=== PATIENT | male | born 2000 | race Caucasian/White ===

== ENCOUNTER 2022-03-08 10:19 | Inpatient (IN) ==
[2022-03-08] MEDS ORDERED: dilTIAZem HCl 5 MG/ML 5 ML VIAL IV ONE (10:36)
[2022-03-08] MEDS ORDERED: dilTIAZem HCl 5 MG/ML 5 ML VIAL IV STA (10:36)
[2022-03-08] MEDS ORDERED: STAT IV Infusion **Titration per Protocol STA (10:42)
[2022-03-08] MEDS ORDERED: SODIUM CHLORIDE 0.9% 1000ML 2,000 ML IV ONE (10:43)
[2022-03-08] MEDS ORDERED: ASPIRIN CHEW 324 MG PO STA (10:45)
[2022-03-08] MEDS ORDERED: dilTIAZem HCL 125 MG in DEXTROSE 5% 100 ML IV SCH (10:45)
[2022-03-08] MEDS ORDERED: ASPIRIN CHEW 324 MG ONE (10:46)
[2022-03-08 10:47] LABS: Basophils # (auto) 0.06 K/uL (0-0.2); Basophils % (auto) 0.7 %; Eosinophils # (auto) 0.59 K/uL (0-0.50); Eosinophils % (auto) 6.8 %; Hematocrit (blood only) 51.7 % (40.1-51.0); Hemoglobin 18.2 g/dl (14.0-18.0); Immature Granulocytes # (auto) 0.02 K/uL (0.00-0.02); Immature Granulocytes % (auto) 0.2 %; Lymphocytes # (auto) 2.64 K/uL (1.2-3.4); Lymphocytes % (auto) 30.2 %; Mean Corpuscular Hgb Conc 35.2 g/dL (32.0-36.0); Mean Corpuscular Volume 87.9 fL (80.0-100.0); Mean Platelet Volume 9.5 fL (9.4-12.4); Monocytes # (auto) 0.75 K/uL (0.24-0.82); Monocytes % (auto) 8.6 %; Neutrophils # (auto) 4.68 K/uL (1.4-6.5); Neutrophils % (auto) 53.5 %; Platelet Count 272 K/uL (130-400); RDW Coefficient of Variation 11.9 % (11.5-14.5); RDW Standard Deviation 38.5 fL (36.4-46.3); Red Blood Count 5.88 M/uL (4.63-6.08); White Blood Count 8.74 K/ul (4.8-10.8)
--- NOTE | 2022-03-08 10:53 | Emergency Department Note ---
History of Present Illness General Chief Complaint: Arrhythmia/Palpitations Stated Complaint: IRREGULAR HEARTBEAT Time Seen by Provider: 03/08/22 10:32 History of Present Illness Provider Complaint: + rapid heart beat and + palpitations Onset (ago): 2 day(s) Duration: + Intermittent Severity: similar to previous episodes Arrhythmia history: + atrial fibrillation and + history of electrical cardioversion Associated symptoms: no chest pain, no shortness of breath, no syncope, no near- syncope, no nausea, no vomiting, no anxiety, no diaphoresis, no cough or no paresthesias HPI narrative: No recent travel, no shortness of breath, no hemoptysis, no exogenous hormone usage, no steroid usage, no illicit drugs. Allergies Allergy/AdvReac Type Severity Reaction Status Date / Time No Known Allergies Allergy Unverified 03/08/22 10:27 Past Med/Surg History Medical History (Updated 03/08/22 @ 12:36 by Tu Perez) Atrial fibrillation No pertinent family history Surgical History (Updated 03/08/22 @ 10:51 by Tu Perez) No pertinent past surgical history Family History (Updated 03/08/22 @ 10:51 by Tu Perez) Other Heart disease Social History Smoking Status: Never smoker Preferred Language: Kuwaiti Feels Safe at Home: Yes Review of Systems A total of 10 systems reviewed and were otherwise negative Physical Exam Vital Signs: Vital Signs - 24 hr 03/08/22 10:28 03/08/22 10:40 03/08/22 10:50 Temperature 37.2 C Temperature Source Temporal Artery Sc an Pulse Rate 96 H 169 H Pulse Rate [Apical ] Pulse Rhythm Regular Pulse Rhythm [Apic al] Pulse Strength Normal Respiratory Rate 16 20 Respiratory Effort / Characteristics Non-Labored Sponta neous Respiratory Depth Normal Respiratory Patter n Regular Blood Pressure 129/80 Blood Pressure [Ri ght Arm] Blood Pressure Ruth n 96 Blood Pressure Ruth n [Right Arm] Blood Pressure Pos ition Sitting Pulse Oximetry 98 99 Oxygen Delivery Me thod Room Air Room Air Room Air Sepsis Recent Feve r Within 48 Hours No Sepsis New/Unexpla ined Change in Men ranjith Status No Sepsis Action Take n by Nursing No Action Required 03/08/22 10:50 03/08/22 12:01 Temperature Temperature Source Pulse Rate Pulse Rate [Apical ] 98 H 95 H Pulse Rhythm Pulse Rhythm [Apic al] Irregular Irregular Pulse Strength Respiratory Rate 18 18 Respiratory Effort / Characteristics Non-Labored Sponta neous Non-Labored Respiratory Depth Normal Normal Respiratory Patter n Regular Blood Pressure Blood Pressure [Ri ght Arm] 162/97 H 145/81 H Blood Pressure Ruth n Blood Pressure Ruth n [Right Arm] 118 102 Blood Pressure Pos ition Pulse Oximetry 100 96 Oxygen Delivery Me thod Room Air Room Air Sepsis Recent Feve r Within 48 Hours Sepsis New/Unexpla ined Change in Men ranjith Status Sepsis Action Take n by Nursing Physical Exam: Physical Exam GENERAL: He is oriented to person, place, and time. He appears well-developed and well-nourished. He does not appear distressed. HENT: Exam performed. - Head: Normocephalic and atraumatic. - Right Ear: External ear normal. No mastoid tenderness. - Left Ear: External ear normal. No mastoid tenderness. - Mouth/Throat: The oropharynx is clear and moist. No trismus in the jaw. No dental abscesses or uvula swelling. No oropharyngeal exudate or tonsillar abscesses. EYES: Conjunctivae and EOM are normal. Pupils are equal, round, and reactive to light. Right eye exhibits no discharge. Left eye exhibits no discharge. No scleral icterus. NECK: Normal range of motion. Neck supple. No JVD present. No spinous process tenderness present. No carotid bruit present. No rigidity. No tracheal deviation and normal range of motion present. No Brudzinski's sign and no Kernig's sign noted. CV: tachycardic rate, irregular rhythm, normal heart sounds and intact distal pulses. There is no peripheral edema. Palpable radial pulses bue. PULM/CHEST: Effort normal and breath sounds normal. No respiratory distress. No stridor. He has no wheezes. He has no rales. - Chest Wall: He exhibits no tenderness. ABD: The abdomen is soft. Bowel sounds are normal. He has no distension. No mass is present. There is no tenderness. There is no rebound, no guarding, no Carlson's sign and no tenderness at McBurney's point. Rovsig negative. MUSC/SKEL: Normal range of motion. There is no peripheral edema, tenderness or deformity. LYMPH: No cervical adenopathy. NEURO: He is alert and oriented to person, place, and time. He has normal strength. No cranial nerve deficit or sensory deficit. Coordination and gait normal. GCS eye subscore is 4. GCS verbal subscore is 5. GCS motor subscore is 6. Cerebellar tests wnl. SKIN: Skin is warm and dry. He is not diaphoretic. PSYCH: He has a normal mood and affect. Behavior is normal. Judgment and thought content normal. Course Course 1032: The patient was evaluated in room B11. A complete history and physical exam was performed Cardiac monitoring: An order was placed for continuous cardiac monitoring. The monitor shows a rate of 185 with atrial fibrilation rhythm Large-bore IV access was obtained. Patient was placed on the pvc monitor and found to be in atrial fibrillation with a ventricular rate between 170 and 190. Cardizem IV bolus 20 mg was ordered for the patient which improved his ventricular rate but he remained in atrial fibrillation. Patient be started on Cardizem drip. 1135: Vital signs stable status post Cardizem bolus and IV fluids. Patient siomara in atrial fibrillation with a ventricular rate between 90 and 120. Labs and imaging within normal limits. Patient be admitted to [facility] team spoke with Jesika who stated to admit to Dr. Romero Administered Medications Sodium Chloride (Nss 1000ml) 2,000 mls @ 999 mls/hr IV .Q2H1M ONE Stop: 03/08/22 12:43 Last Infusion: 03/08/22 11:52 Dose: 0 mls/hr Documented By: Admin: 03/08/22 10:48 Dose: 999 mls/hr Documented By: SUYAPA Sodium Chloride (Nss 1000ml) 1,000 mls @ 125 mls/hr IV .Q8H LYNN Stop: 04/07/22 11:44 Last Admin: 03/08/22 11:59 Dose: 125 mls/hr Documented By: SUYAPA Discontinued Medications Aspirin (Aspirin Chew 324 Mg) 324 mg PO NOW STA Stop: 03/08/22 10:46 Last Admin: 03/08/22 10:48 Dose: 324 mg Documented By: SUYAPA Aspirin (Aspirin Chew 324 Mg) Confirm Administered Dose 324 mg .ROUTE .STK-MED ONE Stop: 03/08/22 10:47 Last Admin: 03/08/22 10:48 Dose: Not Given Documented By: SUYAPA Diltiazem HCl (Diltiazem Hcl 5 Mg/Ml 5 Ml Vial) 20 mg IV NOW STA Stop: 03/08/22 10:37 Last Admin: 03/08/22 10:42 Dose: 20 mg Documented By: SUYAPA Co-signed By: DANIELITO Diltiazem HCl (Diltiazem Hcl 5 Mg/Ml 5 Ml Vial) Confirm Administered Dose 25 mg IV .STK-MED ONE Stop: 03/08/22 10:37 Last Admin: 03/08/22 12:00 Dose: Not Given Documented By: SUYAPA Medical Decision Making Laboratory Data Result diagrams: 03/08/22 10:38 03/08/22 10:38 Lab Results 03/08/22 03/08/22 03/08/22 Range/Units 10:38 10:38 10:38 WBC 8.74 (4.8-10.8) K/ul RBC 5.88 (4.63-6.08) M/uL Hgb 18.2 H (14.0-18.0) g/dl Hct 51.7 H (40.1-51.0) % MCV 87.9 (80.0-100.0) fL MCH 31.0 (25.0-34.0) pg MCHC 35.2 (32.0-36.0) g/dL RDW Std Deviation 38.5 (36.4-46.3) fL RDW Coeff of Martir 11.9 (11.5-14.5) % Plt Count 272 (130-400) K/uL MPV 9.5 (9.4-12.4) fL Immature Gran % (Auto) 0.2 % Neut % (Auto) 53.5 % Lymph % (Auto) 30.2 % [place] % (Auto) 8.6 % Eos % (Auto) 6.8 % Baso % (Auto) 0.7 % Neut # (Auto) 4.68 (1.4-6.5) K/uL Lymph # (Auto) 2.64 (1.2-3.4) K/uL [place] # (Auto) 0.75 (0.24-0.82) K/uL Eos # (Auto) 0.59 H (0-0.50) K/uL Baso # (Auto) 0.06 (0-0.2) K/uL Immature Gran # (Auto) 0.02 (0.00-0.02) K/uL Sodium 138 (136-145) mmol/L Potassium 4.2 (3.5-5.1) mmol/L Chloride 101 (98-107) mmol/L Carbon Dioxide 30 (21-32) mmol/L Anion Gap 7 (3-11) BUN 13 (6-23) mg/dl Creatinine 1.04 (0.6-1.4) mg/dl Est Cr Clr Drug Dosing 134.3 ml/min Est GFR ( Amer) 118.4 ml/min Est GFR (Non-Af Amer) 102.2 ml/min BUN/Creatinine Ratio 12.5 (10-20) Glucose 95 (70-99(Fasting)) mg/dl Calcium 10.0 (8.5-10.1) mg/dl Magnesium 2.0 (1.7-2.4) mg/dl Troponin I High Sens 3.3 (0-20) pg/ml Lipase 11 (11-82) U/L Ethyl Alcohol mg/dL (<10.0) mg/dl SARS-CoV-2, RNA, NAAT (NEGATIVE) 03/08/22 03/08/22 Range/Units 10:38 10:55 WBC (4.8-10.8) K/ul RBC (4.63-6.08) M/uL Hgb (14.0-18.0) g/dl Hct (40.1-51.0) % MCV (80.0-100.0) fL MCH (25.0-34.0) pg MCHC (32.0-36.0) g/dL RDW Std Deviation (36.4-46.3) fL RDW Coeff of Martir (11.5-14.5) % Plt Count (130-400) K/uL MPV (9.4-12.4) fL Immature Gran % (Auto) % Neut % (Auto) % Lymph % (Auto) % [place] % (Auto) % Eos % (Auto) % Baso % (Auto) % Neut # (Auto) (1.4-6.5) K/uL Lymph # (Auto) (1.2-3.4) K/uL [place] # (Auto) (0.24-0.82) K/uL Eos # (Auto) (0-0.50) K/uL Baso # (Auto) (0-0.2) K/uL Immature Gran # (Auto) (0.00-0.02) K/uL Sodium (136-145) mmol/L Potassium (3.5-5.1) mmol/L Chloride (98-107) mmol/L Carbon Dioxide (21-32) mmol/L Anion Gap (3-11) BUN (6-23) mg/dl Creatinine (0.6-1.4) mg/dl Est Cr Clr Drug Dosing ml/min Est GFR ( Amer) ml/min Est GFR (Non-Af Amer) ml/min BUN/Creatinine Ratio (10-20) Glucose (70-99(Fasting)) mg/dl Calcium (8.5-10.1) mg/dl Magnesium (1.7-2.4) mg/dl Troponin I High Sens (0-20) pg/ml Lipase (11-82) U/L Ethyl Alcohol mg/dL < 10.0 (<10.0) mg/dl SARS-CoV-2, RNA, NAAT NEGATIVE (NEGATIVE) Imaging Data Radiologist's Impression: Chest X-Ray 03/08/22 10:34 XR chest 1V portable HISTORY: 21 years-old Male Chest Pain . Acute chest pain COMPARISON: None TECHNIQUE: Portable AP view of the chest FINDINGS: Cardiomediastinal and hilar silhouettes are within normal limits. No pneumoth orax, pleural effusion, airspace consolidation or overt pulmonary edema. Bones appear grossly intact. IMPRESSION: No acute process. ACT 112: Negative or not required by law. The above report was generated using voice recognition software. It may contain grammatical, syntax or spelling errors. Electronically signed by: El Painting M.D. 03/08/2022 11:26 AM ECG Data Additional Comments: EKG 1 at 1034: Atrial fibrillation with a rate of 162. QRS and QTc intervals within normal limits. No ST elevation or ST depression. PVCs are present. EKG #2 at 1042: Atrial fibrillation with a rate of 115. QRS and QTc intervals within normal limits. No ST elevation or ST depression. EKG #3 at 1104: Atrial fibrillation with a rate of 104. QRS and QTc intervals within normal limits. No ST elevation or ST depression. MDM Narrative 1032: The patient was evaluated in room B11. A complete history and physical exam was performed Cardiac monitoring: An order was placed for continuous cardiac monitoring. The monitor shows a rate of 185 with atrial fibrilation rhythm Large-bore IV access was obtained. Patient was placed on the pvc monitor and found to be in atrial fibrillation with a ventricular rate between 170 and 190. Cardizem IV bolus 20 mg was ordered for the patient which improved his ventricular rate but he remained in atrial fibrillation. Patient be started on Cardizem drip. 1135: Vital signs stable status post Cardizem bolus and IV fluids. Patient siomara in atrial fibrillation with a ventricular rate between 90 and 120. Labs and imaging within normal limits. Patient be admitted to the [facility] team spoke with Jesika who stated to admit to Dr. Romero Impression & Plan Atrial fibrillation Critical Care Time Critical Care Time: Yes Total Critical Care Time: 40 I have personally spent greater than 40 minutes of critical care time in the direct management of this patient. This includes bedside care, interpretation of diagnostic studies, and testing, discussion with consultants, patient, and family members, and other required patient management activities. This 40 minutes is in excess of all separately billable procedures. Discharge Plan Visit Data Chief Complaint: Arrhythmia/Palpitations Stated Complaint: IRREGULAR HEARTBEAT ED Provider: Tu Perez Discharge Problem: Atrial fibrillation Patient Disposition: Admitted As Inpatient Forms Stand Alone Forms: My [facility] Referrals Referrals: Jero Carrington MD [Primary Care Provider] -
[2022-03-08 11:09] LABS: BUN Creatinine Ratio 12.5 (10-20); Creatinine Clr Calc Pharmacy 134.3 ml/min; Est GFR (African American) 118.4 ml/min; Est GFR (Non-African American) 102.2 ml/min; Potassium 4.2 mmol/L (3.5-5.1)
[2022-03-08 11:12] LABS: Troponin I High Sensitivity 3.3 pg/ml (0-20)
--- NOTE | 2022-03-08 11:28 | XRay Report ---
XR chest 1V portable HISTORY: 21 years-old Male Chest Pain . Acute chest pain COMPARISON: None TECHNIQUE: Portable AP view of the chest FINDINGS: Cardiomediastinal and hilar silhouettes are within normal limits. No pneumothorax, pleural effusion, airspace consolidation or overt pulmonary edema. Bones appear grossly intact. IMPRESSION: No acute process. ACT 112: Negative or not required by law. The above report was generated using voice recognition software. It may contain grammatical, syntax o r spelling errors. Electronically signed by: El Painting M.D. 03/08/2022 11:26 AM
[2022-03-08] MEDS: SODIUM CHLORIDE 0.9% 1000ML 1,000 ML IV SCH ×2 (11:59→21:11)
--- NOTE | 2022-03-08 12:05 | History & Physical Report ---
Date of Service March 08, 2022 Assessment & Plan (1) Atrial fibrillation with RVR: (2) HTN (hypertension): Plan: - Admit to tele - Trend cardiac biomarkers, initial set was negative, Q6H x 3 more sets - EKG reviewed and in Afib with RVR with rate of 104. Currently 110 at bedside, with minimal movement to auscultate lungs his HR increased to 165. - Check 2 D echo, last echo appears normal on outpatient record review - Cardiology consult - Will start on metoprolol 12.5 mg PO BID now, place on heparin gtt without bolus, pt was not started on cardizem in the ER - Pt denies use of alcohol, drugs, tobacco - follow tox screen and etoh level for completeness - Will check lipid panel with am labs - Check TSH with Free T4 now DVT ppx: -teds, heparin gtt CODE: Full code Dispo: From home, likely discharge in 1-2 days. History of Present Illness Chief Complaint: Palpitations Primary Care Provider: Jero Carrington MD This is a 21 yo M with PMhx of atrial fibrillation with RVR and associated HTN, where was hospitalized for 1 night at [facility] from 09/24/21- 09/25/21. During this previous hospitalization it was thought that he went into afib due to dehydration, but was discharged home on metroprolol and xarelto. He was seen by family medicine following this stay back in September, and followed afterwards with cardiology through [facility] seeing Dr. Jaquez, (not the same [facility] provider here in [place]) and was seen on 10/25/21 per outpatient review. He reports being taken off all medication at that point. Patient reports that he was in his normal state of health until yesterday whenever he noticed increasing palpitations, flutter while he was changing brakes on his car, removing tires, strenous outside activity, etc. He had drank a coffee for breakfast. Throughout the day he attempted to rehydrate by drinking 2 Gatorade's, multiple bottles of water and was feeling better in the evening. He was lightheaded and dizzy once last evening but this improved after standing still for a few moments after standing. After waking up earlier this morning he continued to have palpitations and flutter and therefore called [facility] and was referred to the ER. He reports having continued palpitations and flutter currently, but denies chest pain, heaviness, dizziness or lightheadedness. He denies drug use, alcohol use, binge drinking, or tobacco use. His mother is present with him at bedside and is supportive allowing her son to answer all questions and provide the history. Allergies Allergy/AdvReac Type Severity Reaction Status Date / Time No Known Allergies Allergy Unverified 03/08/22 10:27 Past Med/Surg History Medical History Atrial fibrillation Atrial fibrillation with RVR History of cardioversion No pertinent family history Surgical History No pertinent past surgical history Family History Father Coronary heart disease Hypertension Uncle Coronary heart disease Uncle Coronary heart disease Mother Hypertension Other Heart disease Social History Smoking Status: Never smoker Second Hand Exposure: No; Do You Dip or Chew Tobacco: No; Hx Alcohol Use: No Hx Substance Use: No Preferred Language: Tunisian Communication Ability: Effective Correctional Officer Required: No Beliefs That Will Affect Care: None Current Living Situation: Parent Current Living Situation Comment: Home with mother during the summer; college during the school year Other Information That Helps Us Care for You: No Feels Safe at Home: Yes Safety Concerns: Feels Safe At This Time Assistive Devices: None Review of Systems Review of Systems: Constitutional: No fever, sweats or chills Eyes: No diplopia, no worsening or blurred vision ENT: normal hearing, no trouble swallowing Respiratory: No cough, sputum, dyspnea at rest or on exertion Cardiovascular: As per HPI, No chest pain, tightness Abdomen: No pain, nausea, vomiting, diarrhea or constipation Musculoskeletal: No joint pain, calf pain, swelling Neurologic: No weakness, numbness/tingling, or balance problems Psychiatric: No anxiety or depression Skin: No rash or itch Physical Exam Physical Exam: General: awake, alert, no apparent distress, physically fit Head: Normocephalic, atraumatic ENT: PERRL, EOMI, no pharyngeal exudate, mucous membranes moist Chest: Clear to auscultation, on room air, no adventitious breath sounds Cardiac: Irregularly irregular with HR in 110s at bedside, with sitting up to auscultate posterior lung meléndez, rate increased to 165 at bedside, no murmur, no JVD, normal peripheral pulses, good capillary refill Abdominal: NABS x 4 quadrants, soft, nondistended, nontender to palpation, no r ebound or guarding Extremities: Normal inspection, no peripheral edema or erythema, calfs nontender to palpation Psych: Normal mood and affect Neuro: AAO x 3, strength intact bilaterally and rated 5/5, no motor deficits, speech is clear, no peripheral sensory deficits Results & Data Results & Data ([facility]) Vital Signs (Past 12 Hours) Vital Signs Temp Pulse Pulse Resp BP BP Pulse Ox 03/08/22 10:50 98 H 18 162/97 H 100 03/08/22 10:50 03/08/22 10:40 169 H 20 99 03/08/22 10:28 37.2 C 96 H 16 129/80 98 O2 Del Method 03/08/22 10:50 Room Air 03/08/22 10:50 Room Air 03/08/22 10:40 Room Air 03/08/22 10:28 Room Air Laboratory Results 03/08/22 03/08/22 03/08/22 10:55 10:38 10:38 WBC RBC Hgb Hct MCV MCH MCHC RDW Std Deviation RDW Coeff of Martir Plt Count MPV Immature Gran % (Auto) Neut % (Auto) Lymph % (Auto) Lane % (Auto) Eos % (Auto) Baso % (Auto) Neut # (Auto) Lymph # (Auto) Lane # (Auto) Eos # (Auto) Baso # (Auto) Immature Gran # (Auto) Sodium 138 Potassium 4.2 Chloride 101 Carbon Dioxide 30 Anion Gap 7 BUN 13 Creatinine 1.04 Est Cr Clr Drug Dosing 134.3 Est GFR ( Amer) 118.4 Est GFR (Non-Af Amer) 102.2 BUN/Creatinine Ratio 12.5 Glucose 95 Calcium 10.0 Magnesium Troponin I High Sens 3.3 Lipase 11 Ethyl Alcohol mg/dL < 10.0 SARS-CoV-2, RNA, NAAT NEGATIVE 03/08/22 03/08/22 10:38 10:38 WBC 8.74 RBC 5.88 Hgb 18.2 H Hct 51.7 H MCV 87.9 MCH 31.0 MCHC 35.2 RDW Std Deviation 38.5 RDW Coeff of Martir 11.9 Plt Count 272 MPV 9.5 Immature Gran % (Auto) 0.2 Neut % (Auto) 53.5 Lymph % (Auto) 30.2 Lane % (Auto) 8.6 Eos % (Auto) 6.8 Baso % (Auto) 0.7 Neut # (Auto) 4.68 Lymph # (Auto) 2.64 Lane # (Auto) 0.75 Eos # (Auto) 0.59 H Baso # (Auto) 0.06 Immature Gran # (Auto) 0.02 Sodium Potassium Chloride Carbon Dioxide Anion Gap BUN Creatinine Est Cr Clr Drug Dosing Est GFR ( Amer) Est GFR (Non-Af Amer) BUN/Creatinine Ratio Glucose Calcium Magnesium 2.0 Troponin I High Sens Lipase Ethyl Alcohol mg/dL SARS-CoV-2, RNA, NAAT Diagnostic Findings Chest X-Ray 03/08/22 10:34 XR chest 1V portable HISTORY: 21 years-old Male Chest Pain . Acute chest pain COMPARISON: None TECHNIQUE: Portable AP view of the chest FINDINGS: Cardiomediastinal and hilar silhouettes are within normal limits. No pneumothorax, pleural effusion, airspace consolidation or overt pulmonary edema. Bones appear grossly intact. IMPRESSION: No acute process. ACT 112: Negative or not required by law. The above report was generated using voice recognition software. It may contain grammatical, syntax or spelling errors. Electronically signed by: El Painting M.D. 03/08/2022 11:26 AM Code Status & VTE Plan Code Status Full code VTE Prophylaxis Plan VTE Prophylaxis will be ordered: Yes Supervising Physician Co-Signing Physician Notes Pt is a 21 y/o M with prior hx of Afib s/p cardioversion admitted for another episode of symptomatic afib with RVR. PE: NAD, well developed Cardiac: in afib Lungs: CTA, no wheezing or crackles MSK: no edema Psych: AAOx3, normal affect A/P: Afib with RVR: -was given Cardizem in the ER but never started on the drip -will start pt on heparin drip -cardiology consult: recommended metoprolol 12.5mg BID - echo -admit to tele Agree with A/P by Klaudia Guillen PA-C
[2022-03-08] MEDS: METOPROLOL TARTRATE 25 MG TAB PO SCH ×2 (12:53→21:12)
[2022-03-08] MEDS ORDERED: Heparin IV Adult Wt-Based Standard *NO* Bolus Protocol IV SCH (13:12)
--- NOTE | 2022-03-08 13:23 | Cardiology Consultation ---
Date of Consultation March 08, 2022 Assessment & Plan (1) Atrial fibrillation with RVR: Plan I explained the pathophysiology and treatment of atrial fibrillation to the patient and his mom. Currently I would continue the diltiazem and heparin. He will also be started on metoprolol 12.5 mg twice daily. The best case scenario would be for the patient to spontaneously convert to normal sinus rhythm on his own. If he does not then he may require an elective cardioversion prior to discharge. I would obtain an echocardiogram. Thyroid studies are indicated. We will continue to follow the patient. History of Present Illness History of Present Illness This is a 21-year-old male patient who in September of last year had an episode of atrial fibrillation. Patient states he had been walking around [facility] and suddenly felt his heart racing. He was under no particular stress at the time. He has no significant cardiac history. No history of hyperthyroidism. No other real medical problems. 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 The patient was admitted to [facility] with atrial fibrillation. He did undergo a cardioversion. The patient had follow-up with [facility] computer system specialist in October of last year at which time he was taken off of all medications. At that time he was told the atrial fibrillation was due to dehydration and electrolyte abnormalities. He has done well until yesterday he was working on his car and developed heart palpitations. He tried to get an appointment with the [facility] computer system specialist and waited for them to contact him. Eventually he decided to come here where he was noted to be in atrial fibrillation with RVR. He has been started on a diltiazem drip and heparin. Currently he is not having any sy mptoms. He denies shortness of breath orthopnea. No dizziness or lightheadedness. No chest pain. There is no strong family history of heart disease. The patient is a non-smoker. He does not drink a lot of alcohol. His mom was in the room and she confirmed. No history of hypertension. Allergies Allergy/AdvReac Type Severity Reaction Status Date / Time No Known Allergies Allergy Unverified 03/08/22 10:27 Patient History Medical History Atrial fibrillation Atrial fibrillation with RVR History of cardioversion No pertinent family history Surgical History No pertinent past surgical history Family History Father Coronary heart disease Hypertension Uncle Coronary heart disease Uncle Coronary heart disease Mother Hypertension Other Heart disease Social History Smoking Status: Never smoker Second Hand Exposure: No; Do You Dip or Chew Tobacco: No; Hx Alcohol Use: No Hx Substance Use: No Preferred Language: Kyrgyz Communication Ability: Effective 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 All other 10 point review of systems are negative. Physical Exam Physical Exam: General: no acute distress and stated age Head: normocephalic, no masses, lesions, tenderness or abnormalities Eyes: conjunctiva are pink and non-injected, sclera clear Neck: supple, no adenopathy, no bruits, normal jugular venous pulse, no hep atojugular reflux Chest: normal shape and normal respiratory effort Lungs: clear to auscultation and percussion Cardiac Exam: - regular rate & rhythm, no murmurs gallops or rubs - normal S1, normal S2 Pulses: 2(+) throughout Abdomen: abdomen soft, non-tender, no abnormal masses and no hepatosplenomegaly Musculoskeletal: no gait disturbance, no joint inflammation, no deforming arthritis Extremities: no edema and no cyanosis Neuro: grossly normal exam Results & Data ([facility]) Vital Signs (Past 12 Hours) Vital Signs Temp Pulse Pulse Resp BP BP Pulse Ox 03/08/22 12:01 95 H 18 145/81 H 96 03/08/22 10:50 98 H 18 162/97 H 100 03/08/22 10:50 03/08/22 10:40 169 H 20 99 03/08/22 10:28 37.2 C 96 H 16 129/80 98 O2 Del Method 03/08/22 12:01 Room Air 03/08/22 10:50 Room Air 03/08/22 10:50 Room Air 03/08/22 10:40 Room Air 03/08/22 10:28 Room Air Laboratory Results Laboratory Results - last 24 hr 03/08/22 03/08/22 03/08/22 10:38 10:38 10:38 WBC 8.74 RBC 5.88 Hgb 18.2 H Hct 51.7 H MCV 87.9 MCH 31.0 MCHC 35.2 RDW Std Deviation 38.5 RDW Coeff of Martir 11.9 Plt Count 272 MPV 9.5 Immature Gran % (Auto) 0.2 Neut % (Auto) 53.5 Lymph % (Auto) 30.2 [place] % (Auto) 8.6 Eos % (Auto) 6.8 Baso % (Auto) 0.7 Neut # (Auto) 4.68 Lymph # (Auto) 2.64 [place] # (Auto) 0.75 Eos # (Auto) 0.59 H Baso # (Auto) 0.06 Immature Gran # (Auto) 0.02 Sodium 138 Potassium 4.2 Chloride 101 Carbon Dioxide 30 Anion Gap 7 BUN 13 Creatinine 1.04 Est Cr Clr Drug Dosing 134.3 Est GFR ( Amer) 118.4 Est GFR (Non-Af Amer) 102.2 BUN/Creatinine Ratio 12.5 Glucose 95 Calcium 10.0 Magnesium 2.0 Troponin I High Sens 3.3 Lipase 11 Ethyl Alcohol mg/dL SARS-CoV-2, RNA, NAAT 03/08/22 03/08/22 10:38 10:55 WBC RBC Hgb Hct MCV MCH MCHC RDW Std Deviation RDW Coeff of Martir Plt Count MPV Immature Gran % (Auto) Neut % (Auto) Lymph % (Auto) [place] % (Auto) Eos % (Auto) Baso % (Auto) Neut # (Auto) Lymph # (Auto) [place] # (Auto) Eos # (Auto) Baso # (Auto) Immature Gran # (Auto) Sodium Potassium Chloride Carbon Dioxide Anion Gap BUN Creatinine Est Cr Clr Drug Dosing Est GFR ( Amer) Est GFR (Non-Af Amer) BUN/Creatinine Ratio Glucose Calcium Magnesium Troponin I High Sens Lipase Ethyl Alcohol mg/dL < 10.0 SARS-CoV-2, RNA, NAAT NEGATIVE Medications Administered Current Inpatient Medications Heparin Sodium/Dextrose (Heparin Iv Adult Wt-Based Standard *No* Bolus Protocol) 1 each IV Q15M [facility]; Protocol Stop: 04/07/22 13:11 Diltiazem HCl 125 mg/ Dextrose 125 mls @ 5 mls/hr IV .Q24H [facility]; Protocol Stop: 04/07/22 10:44 Sodium Chloride (Nss 1000ml) 1,000 mls @ 125 mls/hr IV .Q8H [facility] Stop: 04/07/22 11:44 Last Admin: 03/08/22 11:59 Dose: 125 mls/hr Heparin Sodium/Dextrose (Heparin Sodium/Dextrose) 25,000 units in 500 mls @ 0.02 mls/hr IV .Q24H [facility]; Protocol Stop: 04/07/22 13:29 Metoprolol Tartrate (Metoprolol Tartrate 25 Mg Tab) 12.5 mg PO BID [facility] Stop: 04/07/22 12:34 Last Admin: 03/08/22 12:53 Dose: 12.5 mg
[2022-03-08] MEDS ORDERED: ACETAMINOPHEN 325 MG TAB PO PRN (13:55)
[2022-03-08 14:44] LABS: Partial Thromboplastin Time 27.4 Seconds (21.0-31.0); Prothrombin Time 11.1 Seconds (9.0-12.0)
[2022-03-08] MEDS: HEPARIN SODIUM/DEXTROSE 25,000 UNITS/500 ML BAG IV SCH (14:58)
[2022-03-08 16:44] LABS: Appearance Urine Clear (Clear); Bilirubin Urine Negative (Negative); Blood Urine Negative (Negative); Color Urine Yellow; Glucose Urine UA Negative (Negative); Ketones Urine Negative (Negative); Leukocyte Esterase Urine Negative (Negative); Nitrite Urine Negative (Negative); Protein Urine Negative (Negative); Specific Gravity Urine 1.007 (1.000-1.030); Urobilinogen Urine Negative (Negative)
[2022-03-08 17:01] LABS: Amphetamines+Metham, Urine Neg (Neg); Barbiturates, Urine Neg (Neg); Benzodiazepine, Urine Neg (Neg); Cocaine, Urine Neg (Neg); MDMA (Ecstacy), Urine Neg (Neg); Methadone, Urine Neg (Neg); Opiate, Urine Neg (Neg); Phencyclidine, Urine Neg (Neg)
[2022-03-08 21:15] LABS: Partial Thromboplastin Ratio 1.9
[2022-03-08 21:20] LABS: Partial Thromboplastin Time 50.9 Seconds (21.0-31.0)
[2022-03-09 03:18] LABS: Hematocrit (blood only) 48.1 % (40.1-51.0); Hemoglobin 16.7 g/dl (14.0-18.0); Mean Corpuscular Hgb Conc 34.7 g/dL (32.0-36.0); Mean Corpuscular Volume 89.2 fL (80.0-100.0); Mean Platelet Volume 9.9 fL (9.4-12.4); Platelet Count 212 K/uL (130-400); RDW Coefficient of Variation 11.9 % (11.5-14.5); RDW Standard Deviation 38.3 fL (36.4-46.3); Red Blood Count 5.39 M/uL (4.63-6.08); White Blood Count 9.21 K/ul (4.8-10.8)
[2022-03-09 03:44] LABS: Albumin Globulin Ratio 1.8 (0.9-2); Albumin Level 4.2 gm/dl (3.4-5.0); BUN Creatinine Ratio 10.9 (10-20); Bilirubin Direct 0.1 mg/dl (0-0.2); Bilirubin,Total 0.9 mg/dl (0.2-1.0); Calcium 9.2 mg/dl (8.5-10.1); Chol HDL Ratio 4.1 (0-5); Creatinine Clr Calc Pharmacy 151.8 ml/min; Est GFR (African American) 137.3 ml/min; Est GFR (Non-African American) 118.5 ml/min; Globulin 2.3 gm/dl (2.5-4.0); Magnesium 1.9 mg/dl (1.7-2.4); Partial Thromboplastin Ratio 2.2; Phosphorus 3.6 mg/dl (2.5-4.9); Potassium 4.2 mmol/L (3.5-5.1); Total Protein 6.5 gm/dl (6.0-8.3)
[2022-03-09 03:55] LABS: Partial Thromboplastin Time 60.4 Seconds (21.0-31.0)
[2022-03-09] MEDS: SODIUM CHLORIDE 0.9% 1000ML 1,000 ML IV SCH ×3 (05:20→20:23)
[2022-03-09] MEDS: HEPARIN SODIUM/DEXTROSE 25,000 UNITS/500 ML BAG IV SCH ×2 (05:32→20:23)
[2022-03-09] MEDS: METOPROLOL TARTRATE 25 MG TAB PO SCH ×3 (07:58→20:20)
[2022-03-09] MEDS ORDERED: METOPROLOL TARTRATE 25 MG TAB PO ONE (08:30)
[2022-03-09] MEDS ORDERED: METOPROLOL SUCC 25MG EXT REL TAB PO ONE (08:30)
--- NOTE | 2022-03-09 12:31 | Cardiology Progress Note ---
Date of Service March 09, 2022 Assessment & Plan (1) Atrial fibrillation with RVR: Plan I reviewed the patient's echocardiogram this morning. He has essentially an anatomically normal heart. He remains in a persistent atrial fibrillation. I did increase his metoprolol to 25 mg 3 times daily this morning and he has since had better rate control. He remains on IV heparin. The plan will be to proceed with a cardioversion tomorrow. Unfortunately, the patient symptoms started over 24 hours prior to his presentation here in the start of heparin. I think he should undergo a transesophageal echocardiogram prior to the cardioversion to exclude left atrial appendage thrombus. I have explained the risk, benefit and intent of both the cardioversion and transesophageal echocardiogram to the patient and he is willing to proceed. Admission and Anticipated Discharge Date Admission Date: March 08, 2022 Subjective The patient has no new cardiac complaints. Review of Systems Review of Systems: Review of Systems: See HPI for pertinent positives. All other 10 point review of systems are negative. Physical Exam Physical Exam: General: no acute distress and stated age Head: normocephalic, no masses, lesions, tenderness or abnormalities Eyes: conjunctiva are pink and non-injected, sclera clear Neck: supple, no adenopathy, no bruits, normal jugular venous pulse, no h epatojugular reflux Chest: normal shape and normal respiratory effort Lungs: clear to auscultation and percussion Cardiac Exam: - regular rate & rhythm, no murmurs gallops or rubs - normal S1, normal S2 Pulses: 2(+) throughout Abdomen: abdomen soft, non-tender, no abnormal masses and no hepatosplenomegaly Musculoskeletal: no gait disturbance, no joint inflammation, no deforming arthritis Extremities: no edema and no cyanosis Neuro: grossly normal exam Results & Data ([facility]) Vital Signs (Past 12 Hours) Vital Signs Temp Pulse Pulse Pulse Resp BP Pulse Ox 03/09/22 08:11 36.6 C 138 H 16 147/92 H 100 03/09/22 07:15 91 H 03/09/22 03:27 37 C 71 16 134/90 99 O2 Del Method 03/09/22 08:11 Room Air 03/09/22 07:15 03/09/22 03:27 Room Air Laboratory Results Laboratory Results - last 24 hr 03/08/22 03/08/22 03/08/22 10:38 10:38 16:25 WBC RBC Hgb Hct MCV MCH MCHC RDW Std Deviation RDW Coeff of Martir Plt Count MPV PT 11.1 INR 1.0 APTT 27.4 PTT Ratio 1.0 Sodium Potassium Chloride Carbon Dioxide Anion Gap BUN Creatinine Est Cr Clr Drug Dosing Est GFR ( Amer) Est GFR (Non-Af Amer) BUN/Creatinine Ratio Glucose Calcium Phosphorus Magnesium Total Bilirubin Direct Bilirubin AST ALT Alkaline Phosphatase Troponin I High Sens Total Protein Albumin Globulin Albumin/Globulin Ratio Triglycerides Cholesterol LDL Cholesterol, Calc VLDL Cholesterol, Calc HDL Cholesterol Cholesterol/HDL Ratio TSH 1.889 Urine Color Yellow Urine Appearance Clear Urine pH 7.0 Ur Specific [place] 1.007 Urine Protein Negative Urine Glucose (UA) Negative Urine Ketones Negative Urine Blood Negative Urine Nitrite Negative Urine Bilirubin Negative Urine Urobilinogen Negative Ur Leukocyte Esterase Negative Urine Opiates Screen Ur Methadone, Qual Urine Barbiturates Ur Phencyclidine (PCP) U Amphetamin/Meth Scrn MDMA (Ecstasy) Screen U Benzodiazepines Scrn Ur Cocaine Metabolite U Marijuana (THC) Screen 03/08/22 03/08/22 03/08/22 16:25 20:32 20:32 WBC RBC Hgb Hct MCV MCH MCHC RDW Std Deviation RDW Coeff of Martir Plt Count MPV PT INR APTT 50.9 H* PTT Ratio 1.9 Sodium Potassium Chloride Carbon Dioxide Anion Gap BUN Creatinine Est Cr Clr Drug Dosing Est GFR ( Amer) Est GFR (Non-Af Amer) BUN/Creatinine Ratio Glucose Calcium Phosphorus Magnesium Total Bilirubin Direct Bilirubin AST ALT Alkaline Phosphatase Troponin I High Sens 3.3 Total Protein Albumin Globulin Albumin/Globulin Ratio Triglycerides Cholesterol LDL Cholesterol, Calc VLDL Cholesterol, Calc HDL Cholesterol Cholesterol/HDL Ratio TSH Urine Color Urine Appearance Urine pH Ur Specific [place] Urine Protein Urine Glucose (UA) Urine Ketones Urine Blood Urine Nitrite Urine Bilirubin Urine Urobilinogen Ur Leukocyte Esterase Urine Opiates Screen Neg Ur Methadone, Qual Neg Urine Barbiturates Neg Ur Phencyclidine (PCP) Neg U Amphetamin/Meth Scrn Neg MDMA (Ecstasy) Screen Neg U Benzodiazepines Scrn Neg Ur Cocaine Metabolite Neg U Marijuana (THC) Screen Neg 03/09/22 03/09/22 03/09/22 03:08 03:08 03:08 WBC 9.21 RBC 5.39 Hgb 16.7 Hct 48.1 MCV 89.2 MCH 31.0 MCHC 34.7 RDW Std Deviation 38.3 RDW Coeff of Martir 11.9 Plt Count 212 MPV 9.9 PT INR APTT 60.4 H* PTT Ratio 2.2 Sodium 140 Potassium 4.2 Chloride 106 Carbon Dioxide 26 Anion Gap 8 BUN 10 Creatinine 0.92 Est Cr Clr Drug Dosing 151.8 Est GFR ( Amer) 137.3 Est GFR (Non-Af Amer) 118.5 BUN/Creatinine Ratio 10.9 Glucose 102 H Calcium 9.2 Phosphorus 3.6 Magnesium 1.9 Total Bilirubin 0.9 Direct Bilirubin 0.1 AST 15 ALT 22 Alkaline Phosphatase 41 Troponin I High Sens Total Protein 6.5 Albumin 4.2 Globulin 2.3 L Albumin/Globulin Ratio 1.8 Triglycerides 147 Cholesterol 195 LDL Cholesterol, Calc 118 VLDL Cholesterol, Calc 29 HDL Cholesterol 48 Cholesterol/HDL Ratio 4.1 TSH Urine Color Urine Appearance Urine pH Ur Specific [place] Urine Protein Urine Glucose (UA) Urine Ketones Urine Blood Urine Nitrite Urine Bilirubin Urine Urobilinogen Ur Leukocyte Esterase Urine Opiates Screen Ur Methadone, Qual Urine Barbiturates Ur Phencyclidine (PCP) U Amphetamin/Meth Scrn MDMA (Ecstasy) Screen U Benzodiazepines Scrn Ur Cocaine Metabolite U Marijuana (THC) Screen 03/09/22 03/09/22 03:08 08:14 WBC RBC Hgb Hct MCV MCH MCHC RDW Std Deviation RDW Coeff of Martir Plt Count MPV PT INR APTT PTT Ratio Sodium Potassium Chloride Carbon Dioxide Anion Gap BUN Creatinine Est Cr Clr Drug Dosing Est GFR ( Amer) Est GFR (Non-Af Amer) BUN/Creatinine Ratio Glucose Calcium Phosphorus Magnesium Total Bilirubin Direct Bilirubin AST ALT Alkaline Phosphatase Troponin I High Sens 2.6 3.9 Total Protein Albumin Globulin Albumin/Globulin Ratio Triglycerides Cholesterol LDL Cholesterol, Calc VLDL Cholesterol, Calc HDL Cholesterol Cholesterol/HDL Ratio TSH Urine Color Urine Appearance Urine pH Ur Specific [place] Urine Protein Urine Glucose (UA) Urine Ketones Urine Blood Urine Nitrite Urine Bilirubin Urine Urobilinogen Ur Leukocyte Esterase Urine Opiates Screen Ur Methadone, Qual Urine Barbiturates Ur Phencyclidine (PCP) U Amphetamin/Meth Scrn MDMA (Ecstasy) Screen U Benzodiazepines Scrn Ur Cocaine Metabolite U Marijuana (THC) Screen Medications Administered Current Inpatient Medications Acetaminophen (Acetaminophen 325 Mg Tab) 650 mg PO Q4H PRN PRN Reason: Moderate Pain Stop: 04/07/22 13:54 Sodium Chloride (Nss 1000ml) 1,000 mls @ 125 mls/hr IV .Q8H [facility] Stop: 04/07/22 11:44 Last Admin: 03/09/22 05:20 Dose: 128 mls/hr Heparin Sodium/Dextrose (Heparin Sodium/Dextrose) 25,000 units in 500 mls @ 33 mls/hr IV .[id number] [facility]; Protocol Stop: 04/07/22 13:29 Last Titration: 03/09/22 07:04 Dose: 1,650 units/hr, 33 mls/hr Metoprolol Tartrate (Metoprolol Tartrate 25 Mg Tab) 25 mg PO TID [facility] Stop: 04/08/22 13:59
--- NOTE | 2022-03-09 14:34 | Hospitalist Progress Note ---
Date of Service March 09, 2022 Assessment & Plan (1) Atrial fibrillation with RVR: Plan: Present on admission with palpitation/ heart racing Hx of Afib back in September at [facility] where pt underwent cardioversion In the ER he was found to be in Afib with RVR EKG on admission showed Afib with rate 104 troponin x4 WNL and UDS negative received IV cardizem 20mg in the ER He was starting on heparin drip, continue currently Pt was started on Metoprolol 12.5 mg BID on admission ECHO showed normal LV function with EF 55-60% Cardiology on board Metoprolol increased to 25mg TID Plan for possible cardioversion tomorrow if he does not convert to NSR. Pt will need to undergo a transesophageal echocardiogram prior to the cardioversion to exclude left atrial appendage thrombus. Will make NPO after midnight Continue monitor closely (2) HTN (hypertension): Plan: BP fluctuated Continue monitor Metoprolol DVT ppx: -teds, heparin gtt CODE: Full code Disposition Will discharge once medically stable Admission and Anticipated Discharge Date Admission Date: March 08, 2022 Subjective Pt was seen and examined for for follow of Afib with RVR Lying in bed with no acute distress Pt said that he is feels fine Denies any chest pain, palpitation, dizziness and SOB Review of Systems Review of Systems: All systems reviewed & are unremarkable except as noted in Subjective Physical Exam Physical Exam: General- No acute distress Head- atraumatic Eyes- PERRL, EOMI, ENT- oropharynx clear Neck- supple, no JVD Lungs- clear to auscultation Heart- irregular rhythm; no murmur Abdomen- normal bowel sounds, soft, nontender Extremities- no calf tenderness Neuro- alert, oriented x 3; PERRL, EOMI; no facial palsy; no dysarthria Skin- warm & dry Results & Data Results & Data ([facility]) Vital Signs (Past 12 Hours) Vital Signs Temp Pulse Pulse Pulse Resp BP Pulse Ox 03/09/22 08:11 36.6 C 138 H 16 147/92 H 100 03/09/22 07:15 91 H 03/09/22 03:27 37 C 71 16 134/90 99 O2 Del Method 03/09/22 08:11 Room Air 03/09/22 07:15 03/09/22 03:27 Room Air
[2022-03-09] MEDS ORDERED: Nursing to Pharmacy Communication SCH (16:30)
--- NOTE | 2022-03-09 19:29 | Electrocardiogram Report ---
Test Reason : Blood Pressure : / mmHG Vent. Rate : 115 BPM Atrial Rate : 102 BPM P-R Int : 000 ms QRS Dur : 096 ms QT Int : 306 ms P-R-T Axes : 000 079 050 degrees QTc Int : 423 ms Atrial fibrillation with rapid ventricular response Abnormal ECG When compared with ECG of 08-MAR-2022 10:42, No significant change was found Confirmed by Andrea Donaldson ([id number]) on 03/09/2022 7:29:24 PM Referred By: REFERRED SELF Confirmed By:Andrea Donaldson
--- NOTE | 2022-03-09 19:29 | Electrocardiogram Report ---
Test Reason : Blood Pressure : / mmHG Vent. Rate : 162 BPM Atrial Rate : 133 BPM P-R Int : 000 ms QRS Dur : 094 ms QT Int : 282 ms P-R-T Axes : 000 083 013 degrees QTc Int : 462 ms Atrial fibrillation with rapid ventricular response with premature ventricular or aberrantly conducte d complexes Nonspecific ST abnormality Abnormal ECG No previous ECGs available Confirmed by Andrea Donaldson ([id number]) on 03/09/2022 7:28:47 PM Referred By: REFERRED SELF Confirmed By:Andrea Donaldson
--- NOTE | 2022-03-09 19:29 | Electrocardiogram Report ---
Test Reason : Blood Pressure : / mmHG Vent. Rate : 137 BPM Atrial Rate : 187 BPM P-R Int : 000 ms QRS Dur : 094 ms QT Int : 292 ms P-R-T Axes : 000 079 045 degrees QTc Int : 440 ms Atrial fibrillation with rapid ventricular response Abnormal ECG When compared with ECG of 08-MAR-2022 10:34, PVC vs aberrantly conducted complexes are no longer present Confirmed by Andrea Donaldson ([id number]) on 03/09/2022 7:29:15 PM Referred By: REFERRED SELF Confirmed By:Andrea Donaldson
--- NOTE | 2022-03-09 19:29 | Electrocardiogram Report ---
Test Reason : Blood Pressure : / mmHG Vent. Rate : 104 BPM Atrial Rate : 093 BPM P-R Int : 000 ms QRS Dur : 094 ms QT Int : 338 ms P-R-T Axes : 000 077 051 degrees QTc Int : 444 ms Atrial fibrillation with rapid ventricular response Abnormal ECG When compared with ECG of 08-MAR-2022 10:42, No significant change was found Confirmed by Andrea Donaldson ([id number]) on 03/09/2022 7:29:34 PM Referred By: REFERRED SELF Confirmed By:Andrea Donaldson
[2022-03-10] MEDS: SODIUM CHLORIDE 0.9% 1000ML 1,000 ML IV SCH (04:24)
--- NOTE | 2022-03-10 05:36 | Electrocardiogram Report ---
Test Reason : Blood Pressure : / mmHG Vent. Rate : 125 BPM Atrial Rate : 129 BPM P-R Int : 000 ms QRS Dur : 094 ms QT Int : 272 ms P-R-T Axes : 000 071 037 degrees QTc Int : 392 ms Atrial fibrillation with rapid ventricular response Abnormal ECG When compared with ECG of 08-MAR-2022 11:04, No significant change was found Confirmed by Andrea Donaldson ([id number]) on 03/10/2022 5:35:34 AM Referred By: REFERRED SELF Confirmed By:Andrea Donaldson
--- NOTE | 2022-03-10 05:41 | Electrocardiogram Report ---
Test Reason : Blood Pressure : / mmHG Vent. Rate : 172 BPM Atrial Rate : 174 BPM P-R Int : 000 ms QRS Dur : 094 ms QT Int : 266 ms P-R-T Axes : 000 067 019 degrees QTc Int : 449 ms Atrial fibrillation with rapid ventricular response Abnormal ECG When compared with ECG of 09-MAR-2022 05:16, No significant change was found Confirmed by Andrea Donaldson ([id number]) on 03/10/2022 5:41:15 AM Referred By: REFERRED SELF Confirmed By:Andrea Donaldson
[2022-03-10 07:51] LABS: Partial Thromboplastin Ratio 2.8
[2022-03-10] MEDS: METOPROLOL TARTRATE 25 MG TAB PO SCH (07:55)
[2022-03-10 07:57] LABS: Partial Thromboplastin Time 77.7 Seconds (21.0-31.0)
[2022-03-10] MEDS ORDERED: RIVAROXABAN 20 MG TAB PO SCH (10:30)
--- NOTE | 2022-03-10 10:36 | Cardiology Progress Note ---
Date of Service March 10, 2022 Assessment & Plan (1) PAF (paroxysmal atrial fibrillation): Plan The cardioversion and EVIE are canceled since the patient converted to sinus on his own. He can have a diet. I discontinued his heparin. He was on Xarelto previously and had no problems with cost. So I started him on Xarelto 20 mg daily. He should continue metoprolol tartrate 25 mg 3 times daily. I will arrange for follow-up with our wine sales representative as an outpatient. Admission and Anticipated Discharge Date Admission Date: March 08, 2022 Subjective The patient converted to sinus rhythm sometime last evening. He has no ongoing complaints. Review of Systems Review of Systems: Review of Systems: See HPI for pertinent positives. All other 10 point review of systems are negative. Physical Exam Physical Exam: General: no acute distress and stated age Head: normocephalic, no masses, lesions, tenderness or abnormalities Eyes: conjunctiva are pink and non-injected, sclera clear Neck: supple, no adenopathy, no bruits, normal jugular venous pulse, no hepatojugular reflux Chest: normal shape and normal respiratory effort Lungs: clear to auscultation and percussion Cardiac Exam: - regular rate & rhythm, no murmurs gallops or rubs - normal S1, normal S2 Pulses: 2(+) throughout Abdomen: abdomen soft, non-tender, no abnormal masses and no hepatosplenomegaly Musculoskeletal: no gait disturbance, no joint inflammation, no deforming arthritis Extremities: no edema and no cyanosis Neuro: grossly normal exam Results & Data ([facility]) Vital Signs (Past 12 Hours) Vital Signs Temp Pulse Pulse Resp BP Pulse Ox O2 Del Method 03/10/22 07:58 36.4 C L 81 18 130/80 100 Room Air 03/10/22 03:50 36.4 C L 78 16 124/73 99 Room Air 03/10/22 00:39 36.5 C 84 18 129/80 99 Room Air Laboratory Results Laboratory Results - last 24 hr 03/10/22 05:32 APTT 77.7 H* PTT Ratio 2.8 Medications Administered Current Inpatient Medications Acetaminophen (Acetaminophen 325 Mg Tab) 650 mg PO Q4H PRN PRN Reason: Moderate Pain Stop: 04/07/22 13:54 Metoprolol Tartrate (Metoprolol Tartrate 25 Mg Tab) 25 mg PO TID [facility] Stop: 04/08/22 13:59 Last Admin: 03/10/22 07:55 Dose: 25 mg Rivaroxaban (Rivaroxaban 20 Mg Tab) 20 mg PO DAILY [facility] Stop: 04/09/22 10:29
--- NOTE | 2022-03-10 12:35 | Electrocardiogram Report ---
Test Reason : Blood Pressure : / mmHG Vent. Rate : 085 BPM Atrial Rate : 085 BPM P-R Int : 152 ms QRS Dur : 102 ms QT Int : 354 ms P-R-T Axes : 085 066 051 degrees QTc Int : 421 ms Normal sinus rhythm Possible Left atrial enlargement Borderline ECG When compared with ECG of 09-MAR-2022 08:23, Sinus rhythm has replaced Atrial fibrillation Vent. rate has decreased BY 87 BPM Confirmed by Clark Barajas ([id number]) on 03/10/2022 12:35:21 PM Referred By: REFERRED SELF Confirmed By:Efra Barajas
== END 2022-03-10 12:59 | disposition home or self-care (01) | DRG 310 ==
LOC: ED 10:19 → SUATTDRO 11:49 → 2N 11:49